=== PATIENT | female | born 1955 | race Caucasian/White ===

== ENCOUNTER 2016-10-13 09:11 | Day surgery (SDC) | payer BC ==
[2016-10-13] VITALS (14 sets, daily range): BP systolic 120–154; BP diastolic 54–80; PULSE 92–103; RESP 10–23; Ht 167.6 cm; Wt 100.8 kg
[~2016-10-13] VITALS: Ht 167.6 cm; Wt 100.8 kg
[~2016-10-13 09:11] MED LIST: ATOR20TA17; CEFAZOLIN 2 GM/50 ML (PMX) 50 ML IVPB SCH; CITA10TA72; DEXAMETHASONE 4 MG/ML 1 ML INJ ONE; DIVA500T33; HTN MEDS; QUET150T; SOD CHLORIDE 0.9% 1,000 ML IV SCH; [UNRECOGNIZED DRUG - REMARK]
[2016-10-13] MEDS ORDERED: METF500T4 PO (11:35)
[2016-10-13] MEDS ORDERED: GLIM2TAB PO (11:36)
[2016-10-13] MEDS ORDERED: BENA1TAB56 PO (11:37)
[2016-10-13] MEDS ORDERED: EZET10TA3 PO (11:38)
[2016-10-13] MEDS ORDERED: ASPI81TA3 PO (11:38)
[2016-10-13] MEDS ORDERED: OXYB5TAB22 PO (11:39)
[2016-10-13] MEDS ORDERED: GABA100C14 PO (11:41)
[2016-10-13] MEDS ORDERED: TOF50 PO (11:43)
[2016-10-13] MEDS ORDERED: SIMV20TA PO (11:44)
[2016-10-13] MEDS ORDERED: DIVA-16 PO (11:44)
[2016-10-13] MEDS ORDERED: CITA-104 PO (11:44)
[2016-10-13] MEDS ORDERED: ACET-141 PO (11:45)
[2016-10-13] MEDS ORDERED: ASPI-664 PO (11:47)
[2016-10-13] MEDS ORDERED: D5W-0.45 NACL + KCL 20 MEQ 1,000 ML IV SCH (12:42)
[2016-10-13] MEDS ORDERED: morphine 2 MG INJ IV PRN (13:00)
[2016-10-13] MEDS ORDERED: ACETAMINOPHEN 1000MG/100ML IV 100 ML IVPB PRN (13:00)
[2016-10-13] MEDS ORDERED: ONDANSETRON 4 MG INJ IV PRN (13:00)
[2016-10-13] MEDS ORDERED: ISOSULFAN BLUE 1% 5 ML INJ SC ONE (15:09)
[2016-10-13] MEDS ORDERED: PROPOFOL 20 ML ONE (15:19)
[2016-10-13] MEDS ORDERED: LIDOCAINE 1% (MDV) 20 ML INJ ONE (15:19)
[2016-10-13] MEDS ORDERED: CEFAZOLIN 1 GM INJ ONE ×2 (15:32→16:25)
[2016-10-13] MEDS ORDERED: FAMOTIDINE 20 MG INJ ONE (15:35)
[2016-10-13] MEDS ORDERED: ONDANSETRON 4 MG INJ ONE (15:35)
[2016-10-13] MEDS ORDERED: FENTAnyl 50 MCG/ML VIAL ONE (15:45)
[2016-10-13] MEDS ORDERED: MIDAZOLAM 1 MG/ML 2 ML INJ ONE (15:53)
[2016-10-13] MEDS ORDERED: PHENYLephrine (100 MCG/ML) 5ML SYG ONE (16:22)
[2016-10-13] MEDS ORDERED: hydrALAzine 20 MG INJ IV PRN (17:00)
[2016-10-13] MEDS ORDERED: DIPHENHYDRAMINE 50 MG INJ IV PRN (17:00)
[2016-10-13] MEDS ORDERED: PROCHLORPERAZINE 10 MG INJ IV PRN (17:00)
[2016-10-13] MEDS ORDERED: HYDROmorphONE (0.2 MG/ML) 10ML SYG IV PRN ×2 (17:00)
[2016-10-13] MEDS ORDERED: MEPERIDINE 25 MG INJ IV PRN (17:00)
[2016-10-13] MEDS ORDERED: LABETALOL HCL 20MG INJ IV PRN (17:00)
--- NOTE | 2016-10-13 17:00 | OPR ---
DATE OF OPERATION: 10/13/2016 PREOPERATIVE DIAGNOSIS: Invasive cancer, left breast. POSTOPERATIVE DIAGNOSIS: Invasive cancer, left breast. OPERATION PERFORMED: Left needle-directed partial mastectomy and axillary dissection utilizing sent inel lymph node technique. ANESTHESIA: General. ANESTHESIOLOGIST: Dr. Paris SURGEON: Geronimo Thomas MD CHEESEMAKER HELPER: Anthony Murillo MD INDICATIONS FOR PROCEDURE: The patient is a 61-year-old female who underwent surveillance mammograp hy and was found to have a suspicious lesion in her left breast. Core biopsy confirmed an invasive cancer. She was counseled as to the risks versus benefits of breast conservation surgery with a lef t needle-directed partial mastectomy and axillary dissection utilizing sentinel lymph node technique . She consented and was scheduled for surgery. DESCRIPTION OF PROCEDURE: On the morning of surgery, the patient was brought to [facility] where she underwent localization of the lesion performed by attending radiologist, Dr. Lindsay walker. Subsequently, she was brought to the operating theater, placed under general anesthesia. The l [facility] breast and axillary region was prepped and draped in the usual sterile fashion. Approximately 4 mL of 1% Lymphazurin blue dye was then injected peritumoral and the breast was gently massaged for approximately 12 minutes. Subsequently, a 3 to 4 cm incision was made in the left axillary hairline . Subcutaneous tissue was dissected with cautery down through the clavipectoral fascia. Clavipecto ral fascia was incised in spite of significant efforts at trying to identify dye-stained lymphatics. Blue dye was not identified; therefore, Dr. Thomas made the decision to perform a level 1 dissection with blunt dissection along the chest wall. The long thoracic nerve was identified and kept out of harm's way. More superiorly, the axillary vein thoracodorsal neurovascular bundles were identified and kept out of harm's way. A significant level 1 lyndsey tissue was then harvested using the LigaSu re device and sent for intraoperative analysis performed by attending pathologist, Dr. Primo zhang. Dr. Ortiz stated that the largest node did not contain evidence of metastatic disease. Jory ining nodes were sent for permanent pathologic analysis. The wound was irrigated. Minimal bleeding was controlled with cautery. A #10-Malay flat Adrian-Camacho drain was then brought through the le ft mid axillary line in standard fashion. It was cut to size and laid within the axilla. It was se cured in place with 2-0 nylon suture in the standard fashion. The skin was then reapproximated with 4-0 Vicryl suture in subcuticular fashion. Attention was then directed to performing the partial mastectomy. A curvilinear incision was made i n the region of the previously placed localization wire which was in the upper outer quadrant of the breast. Subcutaneous tissue was dissected with cautery. The skin edges were then elevated with sk in hooks and wide circumferential dissection of the tissue associated with the wire then took place, taking great care to ensure adequate margin. The specimen was elevated, transected, oriented, and sent for radiographic confirmation of capture. Capture was confirmed. Specimen was then sent for p ermanent pathologic analysis. The wound was irrigated. Minimal bleeding was controlled with cauter y. The incision was then reapproximated with a deep dermal layer of 4-0 Vicryl sutures in interrupt ed fashion, followed by final skin approximation with 4-0 Vicryl suture in subcuticular fashion. Kingsley mabond was then applied to both incisions. The patient tolerated the procedure well. Estimated blo od loss was 20 mL. There were no complications. The patient was transported in stable condition to the recovery room where a circumferential compression dressing was applied. Dictated By: GERONIMO CONTE/CASEY Conf#: [id number] DID#: [id number]
== END 2016-10-13 18:45 | disposition home or self-care (01) ==
LOC: SDS 09:11
PROVIDERS: ATTEND Surgery Surgical Oncology
DX: C50.912 Malignant neoplasm of unspecified site of left female breast (principal); I10 Essential (primary) hypertension; E11.9 Type 2 diabetes mellitus without complications; E66.01 Morbid (severe) obesity due to excess calories; Z68.35 Body mass index [BMI] 35.0-35.9, adult
CPT/HCPCS: 19301; 38500; 38792; 82962; 88307; J0690; J1100; J1170; J2175; J2250; J2405; J3010; Z7512; Z7610; J2370; Q9968